=== PATIENT | male | born 1980 | race Two or more races ===

== ENCOUNTER 2016-12-12 07:41 | Day surgery (SDC) | payer OTHER ==
[2016-12-07 14:46] VITALS: BMI 41.9
[~2016-12-12 07:41] MED LIST: DEXAMETHASONE SOD PHOSPHATE 10 MG/ML 1 ML VIAL IV ONE; HYDROmorphone 1 MG/ML 1 ML SYRINGE IVP PRN; LACTATED RINGERS 1,000 ML IV SCH; MIDAZOLAM 2 MG/2 ML VIAL IV PRN; ONDANSETRON 4 MG/2 ML VIAL IVP ONE; Pre Op ABX Message 1 EACH MISC MISCELLANE ONE
[2016-12-12] MEDS ORDERED: LIDOCAINE 1% 20 ML VIAL (10MG/ML) FOR IV START INTRADERMA ONE (08:34)
--- NOTE | 2016-12-12 09:28 | P.GSHP ---
History of Present Illness H&P Date: 12/12/16 Chief Complaint: Cheek skin lesion, scalp skin lesion This a 36-year-old male who presents today for excision of right posterior scalp skin lesion and left cheek skin lesion. Past Medical History Additional Past Medical History / Comment(s): current skin lesions History of Any Multi-Drug Resistant Organisms: None Reported Past Surgical History: No Surgical Hx Reported Past Anesthesia/Blood Transfusion Reactions: No Reported Reaction Past Psychological History: No Psychological Hx Reported Smoking Status: Current every day smoker Past Alcohol Use History: Occasional Additional Past Alcohol Use History / Comment(s): smokes 1-1 and 1/2 ppd since age 18 (1993) Past Drug Use History: None Reported - Past Family History Mother Family Medical History: No Reported History Medications and Allergies Home Medications Medication Instructions Recorded Confirmed Type No Known Home Medications [No 12/07/16 12/12/16 History Known Home Medications] Allergies Allergy/AdvReac Type Severity Reaction Status Date / Time No Known Allergies Allergy Verified 12/12/16 08:21 Surgical - Exam Vital Signs Temp Pulse Resp BP Pulse Ox 98.2 F 83 18 146/101 98 12/12/16 08:25 12/12/16 08:25 12/12/16 08:25 12/12/16 08:25 12/12/16 08:25 - General well developed, no distress - Eyes PERRL - ENT normal pinna - Neck no masses - Respiratory normal expansion - Cardiovascular Rhythm: regular - Abdomen Abdomen: soft, non tender - Integumentary Right posterior scalp skin lesion, left lower cheek skin lesion Assessment and Plan Plan: Skin lesions of right posterior scalp and left cheek. We'll perform excisional biopsy
[2016-12-12] MEDS ORDERED: PROPOFOL 10 MG/ML 20 ML VIAL IV ONE (09:37)
[2016-12-12] MEDS ORDERED: MIDAZOLAM 2 MG/2 ML VIAL ONE (09:37)
[2016-12-12] MEDS ORDERED: KETAMINE 10 MG/ML 20 ML VIAL ONE (09:37)
[2016-12-12] MEDS ORDERED: fentaNYL (PF) 50 MCG/ML 2 ML AMP ONE (09:37)
[2016-12-12] MEDS ORDERED: LIDOCAINE 1% INJ 10MG/ML (20 ML MDV) ONE (09:37)
[2016-12-12] MEDS ORDERED: BUPIVACAIN-EPI 0.25%-1:200,000 30 ML VIAL SQ ONE (09:58)
--- NOTE | 2016-12-12 10:11 | P.OP ---
Date of Procedure: 12/12/16 Preoperative Diagnosis: 3 cm skin lesion left cheek 2.5 cm skin lesion right posterior scalp Postoperative Diagnosis: Sebaceous cyst of scalp and cheek Procedure(s) Performed: Excision of sebaceous cyst right scalp and left cheek Anesthesia: MAC Surgeon: Tony Mayorga Pathology: other (Skin lesion right scalp and left cheek) Condition: stable Disposition: PACU Description of Procedure: Patient's placed the operative table in the supine position. He received IV sedation. His left cheek and right scalp lesion were prepped and draped usual sterile fashion. He received IV sedation and then local anesthetic at the incision sites. Using 11 blade the skin was incised at the left cheek and then the sebaceous cyst was visualized. The sebaceous cyst was excised. The cyst excised using blunt and sharp dissection and sent to pathology. Next the right posterior scalp lesion was dissected. The lesion was a sebaceous cyst and this was dissected using blunt and sharp dissection and then the specimen sent to pathology. The skin incision sites were closed using 3-0 Monocryl suture. Dermabond was applied. Patient top she will was sent to recovery in stable condition.
[2016-12-12 10:25] VITALS: RESP 16; TEMP 97.6
[2016-12-12 11:06] VITALS: BP 135/91; PULSE 92
== END 2016-12-12 11:35 | disposition home or self-care (01) ==
LOC: OR 07:41 → EDSEX 10:40 → OR 11:35
PROVIDERS: ATTEND Surgery
DX: L72.3 Sebaceous cyst (principal); H16.9 Unspecified keratitis; F17.200 Nicotine dependence, unspecified, uncomplicated
CPT/HCPCS: 88304; 11443; 11423; J2250; J1100; J2405; J2001; J3010; J2704